=== PATIENT | female | born 2000 | race Hispanic/Latino ===

== ENCOUNTER 2019-09-04 18:54 | Emergency (ER) | payer SELFPAY ==
[2019-09-04] MEDS ORDERED: HYDROcodone/Acetaminophen 10/325 mg Tablet ONE (19:06)
--- NOTE | 2019-09-04 19:38 | RAD ---
RIGHT SHOULDER RADIOGRAPHS THREE VIEWS: 09/04/19 PROVIDED CLINICAL HISTORY: Pain status post injury. FINDINGS: There is no evidence for fracture or other acute osseous abnormality. If there is persistent clinical concern, conservative management and follow-up imaging are advised. IMPRESSION: As above. POS: [facility]
== END 2019-09-04 19:50 | disposition home or self-care (01) ==
LOC: ERS 18:54
DX: S40.011A Contusion of right shoulder, initial encounter (principal); V43.62XA Car passenger injured in collision with other type car in traffic accident, initial encounter

== ENCOUNTER 2020-08-29 08:33 | Outpatient (CLI) | payer OTHER | END 2020-08-29 08:34 | disposition home or self-care (01) | LOC: BICULT 08:33 | PROVIDERS: ATTEND Family Medicine | DX: Z34.02 Encounter for supervision of normal first pregnancy, second trimester (principal); Z3A.22 22 weeks gestation of pregnancy | CPT/HCPCS: 76805 ==

== ENCOUNTER 2022-09-03 15:18 | Outpatient (CLI) | payer OTHER | END 2022-09-03 15:19 | disposition home or self-care (01) | LOC: BICULT 15:18 | PROVIDERS: ATTEND Family Medicine | DX: Z34.82 Encounter for supervision of other normal pregnancy, second trimester (principal); Z3A.19 19 weeks gestation of pregnancy | CPT/HCPCS: 76805 ==